=== PATIENT | female | born 1995 | race Caucasian/White ===

== ENCOUNTER 2016-09-02 23:24 | Emergency (ER) | payer OTHER ==
[2016-09-03 03:25] LABS: HEMOGLOBIN 14.6 gm/dl (12.3-15.3); RED BLOOD COUNT 4.83 M/UL (4.00-5.10); WHITE BLOOD COUNT 7.4 K/UL (4.5-11.0)
[2016-09-03 04:02] LABS: BUN/CREATININE RATIO 20 (0-10)
== END 2016-09-03 05:45 | disposition home or self-care (01) ==
LOC: ER1 23:24
PROVIDERS: Physician Assistant
DX: R00.2 Palpitations (principal); K52.9 Noninfective gastroenteritis and colitis, unspecified; I95.1 Orthostatic hypotension; E86.0 Dehydration
CPT/HCPCS: 36415; 71010; 80053; 81001; 82550; 82553; 83735; 83874; 84439; 84443; 84484; 84703; 85025; 85379; 87086; 93005; 96360; 99285; J7030

== ENCOUNTER → 2020-11-17 | Outpatient (CLI) | payer OTHER ==
[2020-11-17 10:51] LABS: HEMOGLOBIN 13.4 gm/dl (12.3-15.3); RED BLOOD COUNT 4.34 M/UL (4.00-5.10)
[2020-11-17 11:35] LABS: BUN/CREATININE RATIO 9 (0-10)
[2020-11-18 08:13] LABS: HIV SCREEN 4TH GENERATION WRFX Non Reactive (Non Reactive)
[2020-11-18 10:13] LABS: HBSAG SCREEN Negative (Negative); HEP A AB, IGM Negative (Negative); HEP B CORE AB, IGM Negative (Negative); HEP C VIRUS AB 0.1 (0.0-0.9)
[2020-11-21 19:11] LABS: QUANTIFERON MITOGEN VALUE >10.00 IU/mL (.); QUANTIFERON NIL VALUE 0.18 IU/mL (.); QUANTIFERON TB1 AG VALUE 0.16 IU/mL (.); QUANTIFERON TB2 AG VALUE 0.16 IU/mL (.); QUANTIFERON-TB GOLD PLUS Negative (Negative)
== END ==
LOC: US 08:36
PROVIDERS: Nurse Practitioner Family
DX: R63.0 Anorexia (principal); R11.2 Nausea with vomiting, unspecified; R63.4 Abnormal weight loss; K82.4 Cholesterolosis of gallbladder
CPT/HCPCS: 36415; 76700; 80053; 80061; 80074; 82150; 82607; 82728; 83540; 83550; 83690; 83735; 84439; 84443; 85025; 86038; 87389